=== PATIENT | male | born 1980 | race Caucasian/White ===

== ENCOUNTER → 2023-12-02 | Outpatient (CLI) | payer BC | LOC: MHCPAIN 13:36 | DX: M47.22 Other spondylosis with radiculopathy, cervical region (principal); M48.02 Spinal stenosis, cervical region; M54.2 Cervicalgia; M06.9 Rheumatoid arthritis, unspecified; Z79.631 Long term (current) use of antimetabolite agent | CPT/HCPCS: G0463 ==